=== PATIENT | female | born 1965 | race Caucasian/White ===

== ENCOUNTER 2017-10-05 02:11 | Emergency (ER) | payer MEDICAID ==
[~2017-10-05] VITALS: Ht 154.9 cm; Wt 59.0 kg
[2017-10-05] MEDS ORDERED: ONDA4 PO (02:19)
[2017-10-05] MEDS ORDERED: ALPR0.255 PO (02:19)
[2017-10-05] MEDS ORDERED: GABA-529 PO (02:19)
[2017-10-05 03:00] LABS: ANION GAP 8 mmol/L (8-16); CALCIUM, TOTAL 9.7 mg/dL (8.8-10.5); CARBON DIOXIDE 30 mmol/L (22-29); CHLORIDE 100 mmol/L (98-107); CREATININE 0.93 mg/dL (0.60-1.30); GLOMERULAR FILTR. RATE CALC > 60 mL/min (>60); GLUCOSE,RANDOM 104 mg/dL (70-110); POTASSIUM 3.6 mmol/L (3.5-5.1); SODIUM SERUM 138 mmol/L (136-145); UREA NITROGEN, BLOOD 17 mg/dL (7-18)
[2017-10-05 03:05] LABS: ALANINE AMINOTRANSFERASE 25 U/L (12-78); ALBUMIN 3.7 g/dL (3.4-5.0); ALKALINE PHOSPHATASE 84 U/L (46-116); ASPARTATE AMINOTRANSFERASE 23 U/L (15-37); BASOPHILS % (AUTO) 1.1 % (0.0-2.0); BILIRUBIN,TOTAL 0.2 mg/dL (0.1-1.0); EOSINOPHILS % (AUTO) 1.4 % (1.0-6.0); HEMATOCRIT 39.4 % (36-46); HEMOGLOBIN 13.7 g/dL (12.0-16.0); LYMPHOCYTES # (AUTO) 2.8 K/uL (1.0-4.8); LYMPHOCYTES % (AUTO) 43.9 % (22.0-44.0); MEAN CORPUSCULAR HEMOGLOBIN 30.9 pg (26.0-34.0); MEAN CORPUSCULAR HGB CONC 34.8 G/dL (31.0-37.0); MEAN CORPUSCULAR VOLUME 89 fL (80-100); MONOCYTES # (AUTO) 0.5 K/uL (0.1-1.0); MONOCYTES % (AUTO) 8.3 % (2.0-9.0); NEUTROPHILS # (AUTO) 2.8 K/uL (1.8-7.7); NEUTROPHILS % (AUTO) 45.3 % (40.0-70.0); PLATELET COUNT (AUTO) 196 K/uL (150-450); RED BLOOD CELL COUNT(AUTO) 4.44 MIL/uL (4.00-5.20); RED CELL DISTRIBUTION WIDTH 14.7 % (11.5-14.5); TOTAL PROTEIN, SERUM 7.9 g/dL (6.4-8.2)
[2017-10-05] MEDS ORDERED: ONDANSETRON HCL 4 MG/2 ML VIAL IVP ONE (04:00)
[2017-10-05] MEDS ORDERED: ACETAMINOPHEN 500 MG TABLET PO ONE (05:15)
[2017-10-05] MEDS ORDERED: KETOROLAC TROMETHAMINE 30 MG/ML VIAL IVP ONE (05:30)
[2017-10-05 06:01] VITALS: BP 139/76
== END 2017-10-05 06:03 | disposition home or self-care (01) ==
LOC: EMS 02:12
DX: I67.1 Cerebral aneurysm, nonruptured (principal); R51 Headache; H53.149 Visual discomfort, unspecified; F12.90 Cannabis use, unspecified, uncomplicated; F17.210 Nicotine dependence, cigarettes, uncomplicated; Z88.0 Allergy status to penicillin; Z88.2 Allergy status to sulfonamides; Z88.5 Allergy status to narcotic agent; Z88.6 Allergy status to analgesic agent; Z88.8 Allergy status to other drugs, medicaments and biological substances
CPT/HCPCS: 36415; 70450; 80053; 85025; 96374; 96375; 99285; J1885; J2405

== ENCOUNTER 2017-11-03 12:32 | Emergency (ER) | payer MEDICAID ==
[~2017-11-03] VITALS: Ht 149.9 cm; Wt 50.5 kg
[~2017-11-03 12:32] MED LIST: ALPR0.255 PO; GABA-529 PO; ONDA4 PO
[2017-11-03] MEDS ORDERED: IPRATROPIUM BROMIDE 0.5 MG/2.5 ML NEB SOLUTION NEB ONE (13:30)
[2017-11-03] MEDS ORDERED: ALBUTEROL SULFATE 2.5 MG/0.5 ML NEB SOLUTION NEB ONE (13:30)
[2017-11-03] MEDS ORDERED: KETOROLAC TROMETHAMINE 60 MG/2 ML VIAL IM ONE (13:30)
[2017-11-03 14:04] LABS: BASOPHILS % (AUTO) 0.9 % (0.0-2.0); EOSINOPHILS % (AUTO) 1.9 % (1.0-6.0); HEMATOCRIT 33.8 % (36-46); HEMOGLOBIN 11.7 g/dL (12.0-16.0); LYMPHOCYTES % (AUTO) 24.6 % (22.0-44.0); MEAN CORPUSCULAR HEMOGLOBIN 30.7 pg (26.0-34.0); MEAN CORPUSCULAR HGB CONC 34.5 G/dL (31.0-37.0); MEAN CORPUSCULAR VOLUME 89 fL (80-100); MONOCYTES # (AUTO) 0.7 K/uL (0.1-1.0); MONOCYTES % (AUTO) 8.1 % (2.0-9.0); NEUTROPHILS # (AUTO) 5.4 K/uL (1.8-7.7); NEUTROPHILS % (AUTO) 64.5 % (40.0-70.0); PLATELET COUNT (AUTO) 188 K/uL (150-450); RED CELL DISTRIBUTION WIDTH 15.1 % (11.5-14.5)
[2017-11-03 14:20] LABS: ALANINE AMINOTRANSFERASE 17 U/L (12-78); ALKALINE PHOSPHATASE 105 U/L (46-116); ANION GAP 10 mmol/L (8-16); ASPARTATE AMINOTRANSFERASE 19 U/L (15-37); BILIRUBIN,TOTAL 0.2 mg/dL (0.1-1.0); CALCIUM, TOTAL 8.6 mg/dL (8.8-10.5); CARBON DIOXIDE 29 mmol/L (22-29); CHLORIDE 101 mmol/L (98-107); CREATININE 0.83 mg/dL (0.60-1.30); GLOMERULAR FILTR. RATE CALC > 60 mL/min (>60); GLUCOSE,RANDOM 98 mg/dL (70-110); SODIUM SERUM 140 mmol/L (136-145); TOTAL PROTEIN, SERUM 7.4 g/dL (6.4-8.2); UREA NITROGEN, BLOOD 6 mg/dL (7-18)
[2017-11-03 14:25] LABS: POTASSIUM 2.7 mmol/L (3.5-5.1)
[2017-11-03] MEDS ORDERED: ONDANSETRON HCL 4 MG/2 ML VIAL IVP ONE (14:45)
[2017-11-03] MEDS ORDERED: POTASSIUM CHLORIDE 10% 40 MEQ/30 ML LIQUID UDCUP PO ONE (14:45)
[2017-11-03] MEDS ORDERED: POTASSIUM CHLORIDE 20 MEQ ER TABLET PO ONE (15:45)
[2017-11-03 18:14] VITALS: BP 102/55
[2017-11-03] MEDS ORDERED: MONT10TA21 PO ×2 (18:43→18:49)
[2017-11-03] MEDS ORDERED: POTA2TAB18 PO (18:49)
[2017-11-03] MEDS ORDERED: ASPI-989 PO (18:49)
[2017-11-03] MEDS ORDERED: CETI-290 PO (18:49)
[2017-11-03] MEDS ORDERED: BACL10TA PO (18:49)
[2017-11-03] MEDS ORDERED: HYD25 PO (18:49)
[2017-11-03] MEDS ORDERED: PREM625 PO (18:49)
[2017-11-03] MEDS ORDERED: COMP10 PO (18:49)
[2017-11-03] MEDS ORDERED: CLOP75 PO (18:49)
[2017-11-03] MEDS ORDERED: ZALE10CA26 PO (18:49)
== END 2017-11-03 19:02 | disposition home or self-care (01) ==
LOC: EMS 12:34
DX: J18.9 Pneumonia, unspecified organism (principal); I67.1 Cerebral aneurysm, nonruptured; R91.1 Solitary pulmonary nodule; E87.6 Hypokalemia; R42 Dizziness and giddiness; J45.909 Unspecified asthma, uncomplicated; F17.210 Nicotine dependence, cigarettes, uncomplicated; F12.90 Cannabis use, unspecified, uncomplicated; Z88.6 Allergy status to analgesic agent; Z88.5 Allergy status to narcotic agent; Z88.0 Allergy status to penicillin; Z88.2 Allergy status to sulfonamides
CPT/HCPCS: 36415; 71045; 71260; 80053; 84484; 85025; 93005; 94060; 94640; 96372; 96374; 99285; 99406; J1885; J2405; J7613